=== PATIENT | female | born 2000 | race Hispanic/Latino ===

== ENCOUNTER → 2024-02-25 | Day surgery (SDC) | payer BC, OTHER ==
[~2024-02-25] MED LIST: BENTYL10 MG PO; CARAFATE1 GM/10 ML PO; DEXMEDETOMIDINE HCL 200 MCG/2 ML VIAL ONE; FENTANYL CITRATE/PF 100MCG/2 ML INJ ONE; LACTATED RINGER'S 1,000 ML ONE; LIDOCAINE HCL 2% LOCAL INJ 5 ML SDV VIAL INJ ONE; METOCLOPRAMIDE HCL 10 MG/2ML VIAL ONE; MIDAZOLAM HCL 2 MG/2 ML VIAL ONE; NO MEDS; PANTOPRAZOLE SO40 MG PO; PROPOFOL IV EMULSION 10 MG/ML 50 ML VIAL IV ONE; ZOFRAN ODT4 MG PO
[2024-02-25 14:10] VITALS: BP 107/54; PULSE 56; RESP 15; O2SAT 98
== END | disposition home or self-care (01) ==
LOC: OR 12:03
PROVIDERS: ATTEND Internal Medicine Gastroenterology
DX: K29.70 Gastritis, unspecified, without bleeding (principal); K22.10 Ulcer of esophagus without bleeding; K52.9 Noninfective gastroenteritis and colitis, unspecified; K59.09 Other constipation; K62.89 Other specified diseases of anus and rectum; K64.8 Other hemorrhoids; Z71.3 Dietary counseling and surveillance; E66.01 Morbid (severe) obesity due to excess calories; F41.9 Anxiety disorder, unspecified; F32.A Depression, unspecified; Z88.2 Allergy status to sulfonamides; Z79.899 Other long term (current) drug therapy; Z68.34 Body mass index [BMI] 34.0-34.9, adult; Z86.16 Personal history of COVID-19; Z80.0 Family history of malignant neoplasm of digestive organs
CPT/HCPCS: 43239; 45380; 81025; 83630; 83993; 87045; 87177; 87324; 87328; 87449; C9113; J2001; J2250; J2704; J2765; J3010; J7121; 45378